=== PATIENT | female | born 1985 | race Caucasian/White ===

== ENCOUNTER 2018-02-20 11:11 | Inpatient (IN) | payer OTHER ==
[~2018-02-20] VITALS: Ht 170.2 cm; Wt 90.0 kg
[~2018-02-20 11:11] MED LIST: PRENATAL VITAM1 EACH PO
[2018-02-26] MEDS ORDERED: IRON (06:22)
--- NOTE | 2018-02-26 09:09 | NUR ---
02/26/18 0909 Marcella Glaser 0819 PT ARRIVED IN PACU WIDE AWAKE WITH NO C/O'S. FUNDUS FIRM WITH MASSAGE AT UMBILICUS. SCANT DRAINAGE NOTED. DAD AT BEDSIDE. 0835 DR DING IN ROOM WITH BABY. 0905 NO C/O'S. REPORT GIVEN TO CHARITY FIORE.
--- NOTE | 2018-02-27 13:31 | OR ---
[facility] [address] [place] [address] [place], [place] [address] Signed DATE OF OPERATION: 02/26/2018 SURGEON: Deep Levi MD NOTE: Patient of Dr. Levi. PREOPERATIVE DIAGNOSIS: Term , previous section. POSTOPERATIVE DIAGNOSIS: Term , previous section. PROCEDURE: Repeat low transverse segment section. Delivery live male . COMPUTER SERVICE TECHNICIAN: Cindy Rausch MD. ANESTHESIA: Spinal. ESTIMATED BLOOD LOSS: 900 mL. COMPLICATIONS: None. DRAINS: Correa to bladder. FINDINGS: Live male infant. Apgars 8 and 9. Weight 8 pounds 4 ounces. Normal uterus. Normal tubes and ovaries bilateral with a 4 x 5 cm simple ovarian cyst. DESCRIPTION: The patient was brought into the operating room, placed in supine position. After adequate spinal anesthesia was obtained, she was prepped and draped in usual sterile fashion. Correa catheter was placed in the bladder. A Pfannenstiel skin incision was made through previous surgical scar. The subcutaneous tissue was dissected with scalpel Electronically Signed By: DEEP LEVI MD 02/27/18 1331 PATIENT NAME: ATUL ROSE OPERATIVE REPORT DATE OF : 85 REPORT #: [id number] PHYSICIAN: DEEP LEVI MD PCP: NO PRIMARY CARE PHYSICIAN REPORT IS CONFIDENTIAL AND NOT TO BE RELEASED WITHOUT AUTHORIZATION [address] [place], [place] [address] Signed and Bovhoang. The fascia was nicked with scalpel and extended in transverse fashion using curved scissors. The underlying abdominal musculature was bluntly and sharply from the fascia above and below the incision. The abdominal musculature was bluntly and sharply along the midline. The peritoneum was elevated, nicked with scissors and was opened with finger dissection. The Ramesh self-retaining retractor was inserted into the incision and tightened in place. The lower uterine segment was identified. The bladder noted to be well below the area of dissection, so the lower uterine segment was carefully nicked with scalpel and extended in transverse fashion using finger dissection. The infant was noted to be in vertex SAEID presentation. The infant's head easily delivered from the incision. The rest of the infant was easily delivered from the incision. Mouth and nose suctioned with bulb syringe while the cord was doubly clamped and cut. The infant was passed off the table in good condition to awaiting nurse. The incision did extend leftward into some of the uterine vessels. There was some brisk bleeding on the left angle. These were grasped with T clamps. The placenta was then manually removed and uterine cavity explored with lap pad to remove any retained membranes. An angle stitch of 0 Monocryl was placed in the right side of the incision and a running locking stitch of 0 Monocryl suture starting at the left side and incorporating the vessels, was used to close the incision. A 2nd running stitch of 0 Monocryl was used to imbricate the 1st layer. There was now only a small amount of bleeding at the left angle. This was controlled with a [id number]-bf-horks stitch of 0 Monocryl and placing these lateral stitches, a finger was placed behind the broad ligament to make sure that the stitch did not go completely through and to keep the bowel out of the way. At this point, good hemostasis was noted. The entire pelvis was irrigated, suctioned, and examined any superficial bleeding spots cauterized with the Bovie. When good hemostasis was obtained, the Ramesh self-retaining retractor was removed from the incision. Sheet of ACell was placed over the lower uterine segment to help with healing and then the anterior wall peritoneum closed using running stitch of 2-0 Vicryl suture. The abdominal musculature was reapproximated using interrupted stitches of 0 Vicryl suture. Abdominal wall incision was irrigated, suctioned, and examined any bleeding spots cauterized with the Bovie. Powdered ACell sprinkled on the abdominal musculature to help with healing and then the fascia closed using 2 running stitch of 0 Vicryl suture meeting in the midline. The subcutaneous tissue was then irrigated, suctioned, and examined any bleeding spots cauterized with the Bovie. The subcutaneous tissue was then closed using interrupted stitches of 3-0 Vicryl sutures. The skin was reapproximated using skin clips. The patient tolerated the procedure well, went to recovery room in good condition. The sponge, needle, and instrument count correct at end of the procedure. Deep Levi MD Electronically Signed By: DEEP LEVI MD 02/27/18 1331 PATIENT NAME: ATUL ROSE OPERATIVE REPORT DATE OF : 85 REPORT #: [id number] PHYSICIAN: DEEP LEVI MD PCP: NO PRIMARY CARE PHYSICIAN REPORT IS CONFIDENTIAL AND NOT TO BE RELEASED WITHOUT AUTHORIZATION [address] [address] Signed [facility] /[id number] Copies: ~ Electronically Signed By: DEEP LEVI MD 02/27/18 1331 PATIENT NAME: ATUL ROSE OPERATIVE REPORT DATE OF : [birth year] REPORT #: [id number] PHYSICIAN: DEEP LEVI MD PCP: NO PRIMARY CARE PHYSICIAN REPORT IS CONFIDENTIAL AND NOT TO BE RELEASED WITHOUT AUTHORIZATION
--- NOTE | 2018-02-28 12:10 | PR ---
[facility] [address] [place] [address] Signed PP Progress Notes Datetime Report Generated by CPN: 02/28/2018 12:09 SUBJECTIVE: [id number] Pain: Within normal limits Nausea/Vomiting: Denies Vital Signs: [id number] Vital Signs: Reviewed; Within Normal Limits Notable Details: PP Hgb/Hct = 10.4/31.4 EXAM: [id number] Abdomen/Uterus: Normal Lochia: Normal Extremities: Normal Incision: Normal IMPRESSION/PLAN/PROCEDURES: [id number] Impression: Normal progression Plan: Discharge Procedures: None Progress Notes: Doing well, without complaint. Ready to go home. Signing Physician: Virgen Dennison MD Copies: ~ *Electronically Signed* 02/28/18 1209 VIRGEN DENNISON MD PATIENT NAME: ATUL ROSE PROGRESS NOTE DATE OF : [birth year] PHYSICIAN: VIRGEN DENNISON MD RPT #: [id number] REPORT IS CONFIDENTIAL AND NOT TO BE RELEASED WITHOUT AUTHORIZATION
== END 2018-02-28 17:30 | disposition home or self-care (01) | DRG 766 ==
LOC: FBC 02-26 05:50
PROVIDERS: ADMIT General Practice
PROC: 10D00Z1 Extraction of Products of Conception, Low, Open Approach (ICD-10-PCS; principal; 2018-02-26 06:45)
DX: O34.211 Maternal care for low transverse scar from previous cesarean delivery (principal); N85.8 Other specified noninflammatory disorders of uterus; O75.82 Onset (spontaneous) of labor after 37 completed weeks of gestation but before 39 completed weeks gestation, with delivery by (planned) cesarean section; Z3A.39 39 weeks gestation of pregnancy; Z37.0 Single live birth
CPT/HCPCS: 01961; 36415; 85027; C1763; J0690; J1170; J2274; J2370; J2405; J2590; J3010; J7120

== ENCOUNTER 2020-09-01 12:57 | Emergency (ER) | payer OTHER ==
[~2020-09-01] VITALS: Ht 170.2 cm; Wt 81.6 kg
[~2020-09-01 12:57] MED LIST changes: +IRON
--- NOTE | 2020-09-02 07:25 | EKG ---
[facility] [address] [facility] [place], [place] [address] Signed Sinus bradycardia Otherwise normal ECG No previous ECGs available Confirmed by STANFORD MACIEL MD ([id number]) on 09/02/2020 7:25:30 AM Electronically Signed By: STANFORD MACIEL MD 09/02/20 0725 PATIENT NAME: ATUL ROSE Electrocardiogram DATE OF : 85 PHYSICIAN: STANFORD MACIEL MD REPORT #: [id number] REPORT IS CONFIDENTIAL AND NOT TO BE RELEASED WITHOUT AUTHORIZATION
== END 2020-09-01 15:29 | disposition home or self-care (01) ==
LOC: ED 12:57
DX: R07.89 Other chest pain (principal); Z88.0 Allergy status to penicillin
CPT/HCPCS: 71045; 80053; 83735; 84484; 84703; 85025; 85379; 93005; 93010; 99285-25